=== PATIENT | male | born 1965 | race African-American/Black ===

== ENCOUNTER 2024-02-04 14:46 | Inpatient (IN) | payer BC, MEDICAID, MEDICARE ==
[~2024-02-04] VITALS: Ht 165.1 cm; Wt 64.6 kg
[2024-02-04 16:01] LABS: HEMATOCRIT. 42.2 % (42.0-52.0); HEMOGLOBIN. 13.7 g/dL (14.0-18.0); MEAN CORPUSCULAR HGB CONC 32.4 g/dL (31.0-37.0); MEAN CORPUSCULAR VOLUME 86.2 fL (80.0-94.0); MEAN PLATELET VOLUME 8.8 fl (7.4-10.4); PLATELET 187 x1000/uL (130-400); RED BLOOD CELL COUNT 4.89 mill/uL (4.7-6.1); WHITE BLOOD COUNT 8.6 x1000/uL (4.5-11.0)
[2024-02-04 16:08] LABS: DIFFERENTIAL COMMENT 1
[2024-02-04 16:10] LABS: CHLORIDE 102 mEq/L (98-107); POTASSIUM 3.9 mEq/L (3.5-5.1); SODIUM 133 mEq/L (136-145)
[2024-02-04 16:11] LABS: CARBON DIOXIDE 24 mEq/L (21-32)
[2024-02-04 16:12] LABS: CALCIUM 9.2 mg/dL (8.7-10.4)
[2024-02-04 16:16] LABS: GLUCOSE 95 mg/dL (70-105); UREA NITROGEN BLOOD 14 mg/dL (9-23)
[2024-02-04 16:36] LABS: TROPONIN I HIGH SENSITIVITY < 4 ng/L (3.0-53)
[2024-02-04] MEDS: SODIUM CHLORIDE 0.9% 1,000 ML IV ONE (16:51)
[2024-02-04] MEDS: ASPIRIN 325MG EC TABLET PO ONE (16:52)
[2024-02-04 18:38] LABS: ANISOCYTOSIS 1+; PLATELET ESTIMATE NORMAL
[2024-02-05 04:00] VITALS: BP 110/69; PULSE 82; RESP 20; TEMP 37.33632; TEMP 37.3632; O2SAT 98
[2024-02-05] MEDS ORDERED: NITROGLYCERIN 0.4MG TABLET SL SL PRN (05:15)
[2024-02-05 06:45] LABS: CHLORIDE 102 mEq/L (98-107); POTASSIUM 4.3 mEq/L (3.5-5.1); SODIUM 133 mEq/L (136-145)
[2024-02-05 06:46] LABS: CALCIUM 9.3 mg/dL (8.7-10.4); CARBON DIOXIDE 25 mEq/L (21-32)
[2024-02-05 06:51] LABS: GLUCOSE 140 mg/dL (70-105); TRIGLYCERIDE 75 mg/dL (0-150); UREA NITROGEN BLOOD 14 mg/dL (9-23)
[2024-02-05 06:52] LABS: LDL CHOLESTEROL 54 mg/dL (5-100); TROPONIN I HIGH SENSITIVITY 4 ng/L (3.0-53)
[2024-02-05 06:53] LABS: CHOLESTEROL 123 mg/dL (<200); HDL CHOLESTEROL 50 mg/dL (>55)
[2024-02-05 08:00] VITALS: BP 115/79; PULSE 81; RESP 20; TEMP 37.33632; O2SAT 98
[2024-02-05 08:09] LABS: BASOPHILS % 0.2 % (0.0-2.0); EOSINOPHILS % 6.1 % (0.0-5.0); HEMATOCRIT. 41.7 % (42.0-52.0); HEMOGLOBIN. 13.5 g/dL (14.0-18.0); LYMPHOCYTES % 18.6 % (20.0-50.0); MEAN CORPUSCULAR HEMOGLOBIN 28.2 pg (28.0-32.0); MEAN CORPUSCULAR HGB CONC 32.3 g/dL (31.0-37.0); MEAN CORPUSCULAR VOLUME 87.5 fL (80.0-94.0); MEAN PLATELET VOLUME 9.5 fl (7.4-10.4); MONOCYTES % 6.8 % (2.0-8.0); NEUTROPHILS % 68.3 % (40.0-76.0); PLATELET 172 x1000/uL (130-400); RED BLOOD CELL COUNT 4.77 mill/uL (4.7-6.1); RED CELL DISTRIBUTION WIDTH 15.9 % (11.6-14.6); WHITE BLOOD COUNT 8.7 x1000/uL (4.5-11.0)
[2024-02-05] MEDS: ASPIRIN 81MG TABLET PO SCH (08:28)
[2024-02-05] MEDS: METOPROLOL TARTRATE 50MG TABLET PO SCH (08:29)
[2024-02-05 12:00] VITALS: BP 111/52; PULSE 78; RESP 22; TEMP 37.89192; O2SAT 100
[2024-02-05] MEDS: ACETAMINOPHEN 325MG TABLET PO PRN (12:49)
[2024-02-05 13:00] VITALS: TEMP 37.33632
[2024-02-05 13:54] LABS: *AMPHETAMINES SCREEN URINE NEGATIVE (NEGATIVE); *BARBITURATES SCREEN URINE NEGATIVE (NEGATIVE); *BENZODIAZEPINES SCREEN URINE NEGATIVE (NEGATIVE); *COCAINE SCREEN URINE NEGATIVE (NEGATIVE); METHADONE URINE SCREEN NEGATIVE (NEGATIVE); OPIATES URINE SCREEN NEGATIVE (NEGATIVE)
[2024-02-05 13:55] LABS: CANNABINOID URINE SCREEN PRESUMPTIVE POSITIVE (NEGATIVE); ECSTASY MDMA SCREEN URINE NEGATIVE (NEGATIVE); PHENCYCLIDINE URINE SCREEN NEGATIVE (NEGATIVE)
[2024-02-05 16:00] VITALS: BP 116/71; PULSE 65; RESP 21; TEMP 37.2252; O2SAT 97
[2024-02-05] MEDS: CALCIUM CARBONATE 500MG TABLET CHEW PO PRN (18:48)
[2024-02-05 20:00] VITALS: BP 142/88; PULSE 81; RESP 24; TEMP 37.33632; O2SAT 94
[2024-02-05] MEDS: ENOXAPARIN 40MG/0.4ML SYR SUBCUT SCH (20:55)
[2024-02-05 22:57] LABS: CLARITY URINE CLEAR (CLEAR); COLOR URINE YELLOW (YELLOW); GLUCOSE URINE NEGATIVE (NEGATIVE); KETONES URINE NEGATIVE (NEGATIVE); LEUKOCYTE ESTERASE URINE NEGATIVE (NEGATIVE); NITRITE URINE NEGATIVE (NEGATIVE); OCCULT BLOOD URINE TRACE (NEGATIVE); PROTEIN URINE 1+ (NEGATIVE); SPECIFIC GRAVITY URINE 1.013 (1.005-1.030)
[2024-02-05 23:19] LABS: BACTERIA URINE 2+; RBC URINE 0-2 /hpf (0-2); SQUAMOUS EPITHELIAL CELL URINE RARE /lpf (RARE/1+); WBC URINE 0-2 /hpf (0-2)
[2024-02-06] VITALS: BP 104/52; PULSE 78; RESP 18; TEMP 37.11408; O2SAT 98
[2024-02-06 04:00] VITALS: BP 90/54; PULSE 76; RESP 18; TEMP 36.9474; O2SAT 96
[2024-02-06 08:00] VITALS: BP 156/138; PULSE 73; RESP 25; TEMP 37.7808; O2SAT 96
[2024-02-06] MEDS: PANTOPRAZOLE 40MG DR TABLET PO SCH (08:34)
[2024-02-06 12:51] VITALS: BP 102/61; PULSE 65; RESP 26; TEMP 37.66968; O2SAT 94
[2024-02-06] MEDS: SULFAMETHOXAZOLE/TRIMETHOPRIM 800/160MG TABLET PO SCH (13:35)
[2024-02-06 14:42] VITALS: BP 102/65; PULSE 76; TEMP 99.5; O2SAT 98
[2024-02-06] MEDS ORDERED: BICT1TAB PO (16:24)
[2024-02-06] MEDS ORDERED: SULF-13 PO (16:25)
[2024-02-07 09:11] LABS: % CD 3 POS. LYMPHOCYTES 79.3 % (57.5-86.2); % CD 4 POS. LYMPHOCYTES 7.5 % (30.8-58.5); % CD 8 POS. LYMPH 71.3 % (12.0-35.5); ABSOLUTE CD 3 1110 /uL (622-2402); ABSOLUTE CD 4 HELPER 105 /uL (359-1519); ABSOLUTE CD 8 SUPPRESSOR 998 /uL (109-897); ABSOLUTE EOSINOPHILS 0.4 x10E3/uL (0.0-0.4); ABSOLUTE LYMPHOCYTES 1.4 x10E3/uL (0.7-3.1); ABSOLUTE MONOCYTES 0.9 x10E3/uL (0.1-0.9); ABSOLUTE NEUTROPHILS 4.9 x10E3/uL (1.4-7.0); BASOPHILS 0 % (Not Estab.); CD4/CD8 RATIO 0.11 (0.92-3.72); EOSINOPHILS 5 % (Not Estab.); HEMATOCRIT 39.8 % (37.5-51.0); HEMOGLOBIN 12.8 g/dL (13.0-17.7); IMMATURE GRANULOCYTES 1 % (Not Estab.); IMMATURE GRANULOCYTES ABSOLUTE 0.1 x10E3/uL (0.0-0.1); LYMPHOCYTES 18 % (Not Estab.); MEAN CORPUSCULAR HEMOGLOBIN 28.2 pg (26.6-33.0); MEAN CORPUSCULAR HGB CONC. 32.2 g/dL (31.5-35.7); MEAN CORPUSCULAR VOLUME 88 fL (79-97); MONOCYTES 12 % (Not Estab.); NEUTROPHILS 64 % (Not Estab.); PLATELETS 182 x10E3/uL (150-450); RBC 4.54 x10E6/uL (4.14-5.80); RED CELL DISTRIBUTION WIDTH 13.9 % (11.6-15.4); WBC 7.6 x10E3/uL (3.4-10.8)
[2024-02-08 15:11] LABS: *HIV-1 RNA BY PCR 350 copies/mL (.); *HIV1 RNA LOG10 2.544 (.)
== END 2024-02-06 18:37 | disposition home or self-care (01) | DRG 392 ==
LOC: ER 15:01 → EDBEDREQ 15:03 → 5WST 18:25 → EDBEDREQ 18:27 → 3WST 02-05 03:35
PROVIDERS: ADMIT Internal Medicine; ATTEND Internal Medicine
DX: K21.9 Gastro-esophageal reflux disease without esophagitis (principal); E87.1 Hypo-osmolality and hyponatremia; B20 Human immunodeficiency virus [HIV] disease; Z59.01 Sheltered homelessness; F12.90 Cannabis use, unspecified, uncomplicated; R07.89 Other chest pain; Z20.822 Contact with and (suspected) exposure to COVID-19; Z91.148 Patient's other noncompliance with medication regimen for other reason
CPT/HCPCS: 36415; 71045; 80048; 80061; 80305; 81003; 83880; 84145; 84484; 85025; 86359; 86360; 87426; 87536; 99285; J1650; J7030